=== PATIENT | male | born 1955 | race African-American/Black ===

== ENCOUNTER 2020-12-20 13:12 | Inpatient (IN) | payer OTHER ==
[2020-12-20 15:20] LABS: INR 1.14 (0.83-1.09); PROTHROMBIN TIME (PATIENT) 13.7 SEC (9.7-13.0)
[2020-12-20 15:21] LABS: BASO % 1.2 % (0-2.0); EOS % 0.7 % (0-4.5); HEMATOCRIT 20.6 % (35.4-49); LYMPH % 14.8 % (8-40); MCHC 27.6 g/dl (32.0-35.9); MEAN CELL VOLUME 69.6 fl (80-96); MEAN PLT VOLUME 9.4 fl (7.5-11.1); NEUT % 68.3 % (42.8-82.8); PLATELET COUNT 569 K/MM3 (134-434); RBC 2.96 M/mm3 (4.00-5.60); RDW 18.9 % (11.9-15.9); WHITE BLOOD COUNT 6.9 K/mm3 (4.0-10.0)
[2020-12-20 15:30] LABS: BLOOD UREA NITROGEN 13.1 mg/dL (7-18); CALCIUM 11.6 mg/dL (8.5-10.1)
[2020-12-20 15:31] LABS: ALBUMIN 3.6 g/dl (3.4-5.0); MCH 19.2 pg (25.7-33.7)
[2020-12-20 15:32] LABS: HEMOGLOBIN 5.7 GM/dL (11.7-16.9)
[2020-12-20 15:33] LABS: CREATININE 1.1 mg/dL (0.55-1.3)
[2020-12-20 15:35] LABS: BILIRUBIN,TOTAL 0.3 mg/dL (0.2-1); TOT PROT 6.8 g/dl (6.4-8.2)
[2020-12-20 16:07] LABS: ANISOCYTOSIS 3+; MACROCYTOSIS 0; OVALOCYTE 2+; PLATELET ESTIMATE NORMAL; TARGET CELLS 1+; TEAR DROP CELLS 1+
[2020-12-20] MEDS ORDERED: SODIUM CHLORIDE 0.9% 500 ML INFUS.BAG IV ONE (17:46)
[2020-12-20] MEDS ORDERED: ACETAMINOPHEN 1000 MG/100 ML VIAL (NON FORMULARY) IVPB ONE (17:46)
[2020-12-20] MEDS ORDERED: PANTOPRAZOLE 40 MG TABLET PO ONE (20:18)
[2020-12-20] MEDS ORDERED: IRON SUCROSE INJECTION 100 MG in SODIUM CHLORIDE 95 ML IVPB ONE (20:19)
[2020-12-20] MEDS ORDERED: ACETAMINOPHEN 325 MG TABLET (FP) PO PRN (20:24)
[2020-12-20] MEDS ORDERED: PANTOPRAZOLE 40 MG TABLET ONE (22:36)
[2020-12-21 04:39] VITALS: BMI 27.6
[2020-12-21] MEDS ORDERED: PANTOPRAZOLE 40 MG TABLET PO SCH (10:00)
[2020-12-21 10:12] LABS: HEMATOCRIT 25.3 % (35.4-49); HEMOGLOBIN 7.7 GM/dL (11.7-16.9); MCH 22.6 pg (25.7-33.7); MCHC 30.5 g/dl (32.0-35.9); MEAN CELL VOLUME 73.9 fl (80-96); MEAN PLT VOLUME 9.4 fl (7.5-11.1); PLATELET COUNT 525 K/MM3 (134-434); RBC 3.42 M/mm3 (4.00-5.60); RDW 20.4 % (11.9-15.9); WHITE BLOOD COUNT 6.2 K/mm3 (4.0-10.0)
[2020-12-21 11:10] LABS: ALBUMIN 3.4 g/dl (3.4-5.0); CALCIUM 11.6 mg/dL (8.5-10.1)
[2020-12-21 11:11] LABS: BLOOD UREA NITROGEN 10.7 mg/dL (7-18)
[2020-12-21 11:14] LABS: CREATININE 1.2 mg/dL (0.55-1.3)
[2020-12-21 11:15] LABS: BILIRUBIN,TOTAL 0.5 mg/dL (0.2-1); TOT PROT 6.6 g/dl (6.4-8.2)
[2020-12-21 15:31] VITALS: BP 143/81; PULSE 71; TEMP 98.7
== END 2020-12-21 17:40 | disposition home or self-care (01) | DRG 812 ==
LOC: JER 13:12 → JERBED 16:59 → J5S 23:38
PROVIDERS: ADMIT Hospitalist; ATTEND Internal Medicine
PROC: 30233N1 Transfusion of Nonautologous Red Blood Cells into Peripheral Vein, Percutaneous Approach (ICD-10-PCS; principal; 2020-12-20)
DX: D50.0 Iron deficiency anemia secondary to blood loss (chronic) (principal); R50.9 Fever, unspecified; K64.8 Other hemorrhoids; E53.8 Deficiency of other specified B group vitamins
CPT/HCPCS: 36415; 36430; 71260-TC; 74177-TC; 80053; 82272; 82607; 82728; 83540; 83550; 83605; 85025; 85027; 85610; 86850; 86900; 86901; 86922; 87040; 93005; 93010; 99285-25; C9803; J0131; J1756; P9058; U0003; U0005